=== PATIENT | female | born 1935 | race Caucasian/White ===

== ENCOUNTER → 2016-10-20 | Day surgery (SDC) | payer MEDICARE ==
[~2016-10-20] MED LIST: ALPHAGAN P10 ML OP; AMLODIPINE BESIL1 GM PO; AMLODIPINE BESYL5 MG PO; CARAFATE1 G PO; CARAFATE1 GM PO; CEFTIN PO; CITALOPRAM HBR40 MG PO; DIAZEPAM2 MG PO; FERRO-TIME325 MG PO; GLUCOTROL PO; GLUCOTROL XL10 MG PO; LEXAPRO PO; LORTAB 10/500 T1 TAB PO; LUMIGAN2.5 ML OU; MELOXICAM15 MG PO; METHOCARBAMOL500 MG PO; NEURONTIN PO; OXYCODONE15 M1 PO; PAROXETINE HCL20 MG PO; PROTONIX PO; PROZAC PO; TOPAMAX50 MG PO; TOPROL XL PO; TRAVATAN5 ML OS
--- NOTE | ~2016-10-20 | OR ---
Unit #: [id number] #: [id number] Patient: EDUARDO ZAMARRIPA [id number] [facility]. [place], [place] [address] [id number] O MR#: [id number] NAME: EDUARDO ZAMARRIPA ROOM: Date of Procedure: 10/20/2016 Admission Date: 10/20/2016 Surgeon: Ant Jaimes M.D. : 1935 Attending Physician: Ant Jaimes M.D. Primary Care Physician: Suzi Santoro A.P.R.N. OPERATIVE REPORT JOB NOTE: CC: SUZI SANTORO A.P.R.N. ATTENDING PHYSICIAN Suzi Santoro A.P.R.N. PREOPERATIVE DIAGNOSES The patient has longstanding history of gastroesophageal reflux and had a pyloric channel ulcer. She came for elective upper endoscopy to document healing of the ulcer. PROCEDURES PERFORMED Upper gastrointestinal endoscopy and biopsy. POSTOPERATIVE DIAGNOSES 1. Previously seen gastric ulcer is completely healed. 2. The patient had [id number] prepyloric antral erosive gastritis. Biopsies were obtained from the antrum for CLOtest. 3. 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 The latter was felt to be nonobstructing, but was dilated using repeated punch biopsy in the same area of the ring. 4. Rest of the examination up to third part of duodenum was normal. RECOMMENDATIONS The patient is advised to reduce the dose of Protonix from 40 mg p.o. b.i.d. to 40 mg p.o. q.a.m. She will be followed up in the office in 4 to 5 months' time. SEDATION USED MAC. DESCRIPTION OF PROCEDURE Following detailed explanation of the potential risks and complications of an upper endoscopy, namely perforation, bleeding, and complication related to sedation, the patient was brought to GI lab and laid in the left lateral decubitus position. Lubricated tip of the Olympus video upper endoscope was passed through the bite block into the proximal esophagus under direct vision. The entire esophageal mucosa was examined and the patient was noted to have distal esophageal mucosal ring. This was felt to be nonobstructing. The scope was then advanced into the gastric cavity and the latter was insufflated. Mucosa of the fundus, body, and antrum was examined. Previously seen gastric ulcer is completely resolved and healed. The patient did have prepyloric antral erosive gastritis in the Unit #: [id number] #: [id number] Patient: ZAMARRIPA,GENEVA form of linear erythema, erythematous streaks, and erosions. Pylorus was intubated with visualization of the normal duodenal bulb and second and third part of the duodenum. Upon withdrawal and retroflexion, incisura, cardia, and greater curve was examined and biopsy was obtained from the antrum for CLOtest. The scope was then withdrawn in the distal esophagus. Multiple punch biopsy of the same area of the mucosal ring were done to make it ineffective. The entire esophageal mucosa was examined all the way up to pharynx. No additional findings were noted. The patient tolerated the procedure without any postprocedure complications. Dictated by... Cullen Nelson TD: 10/20/2016 10:45 JOB #: [id number] OPERATIVE REPORT X Ant Jaimes MD X PROCEDURE OPERATIVE NOTE
== END | disposition home or self-care (01) ==
LOC: COPS 07:26
DX: K29.60 Other gastritis without bleeding (principal); K22.2 Esophageal obstruction; K21.9 Gastro-esophageal reflux disease without esophagitis; Z87.19 Personal history of other diseases of the digestive system; I10 Essential (primary) hypertension; J43.9 Emphysema, unspecified; M19.90 Unspecified osteoarthritis, unspecified site; M41.9 Scoliosis, unspecified; Z87.891 Personal history of nicotine dependence; Z90.710 Acquired absence of both cervix and uterus
CPT/HCPCS: 87077

== ENCOUNTER → 2017-04-21 | Outpatient (CLI) | payer MEDICARE ==
--- NOTE | ~2017-04-21 | NM8 ---
[facility] A Service of [facility] & [facility] RADIOLOGY TEXT RESULTS PATIENT: EDUARDO ZAMARRIPA LOCATION: [facility] : 33 UNIT #: [id number] AGE: [address]: Suzi Santoro APRN SEX: F ORDER DR: [id number] [place], [place] [address] [id number] O MR#: [id number] Acc #: [id number] NAME: EDUARDO ZAMARRIPA : 1935 SEX: F STUDY DATE/TIME: 04/21/2017 12:27 UNIT: [facility] ROOM: STUDY DESCRIPTION: ID Bone or Joint Whole Body Attending Physician: Suzi Santoro A.P.R.N. Referring Physician: Suzi Santoro A.P.R.N. Ordering Physician: Suzi Santoro A.P.R.N. Primary Care Physician: Suzi Santoro A.P.R.N. MEDICAL IMAGING REPORT This report is preliminary unless electronic signature is present EXAM Whole-body bone scan HISTORY 82-year-old female with elevated alkaline phosphatase found 2 weeks ago. Complains of no specific complaints. COMPARISON No recent correlative images are available. FINDINGS Examination demonstrates increased uptake in the left anterior ninth and tenth ribs. This contiguous pattern is most compatible with previous trauma and healed or healing rib fractures. There is also increased uptake within the mid thoracic spine at about the T9-T10 thoracic level and also possibly at T7. In an elderly female, this would be concerning for thoracic compression fractures. Correlation with conventional radiographs, CT or MRI may be of benefit. There is increased uptake within the left knee centrally probably related to underlying patellofemoral arthrosis. Mild increased uptake seen in the lumbar spine at the L3-L4 levels and most likely degenerative in nature. Bilateral renal activity normal bladder activity noted. There is also mild increased uptake in the medial compartment of the right knee, most likely degenerative in nature. IMPRESSION 1. Multiple foci of increased uptake as detailed above, but no findings to suggest osseous metastatic disease. No findings to suggest fibrous dysplasia. 2. Increased uptake in the mid thoracic spine multiple levels, probably related to possible thoracic compression fractures. Correlate for acuity and if clinically warranted, cross-sectional imaging may be of STS. [facility] A Service of [facility] & [facility] RADIOLOGY TEXT RESULTS PATIENT: EDUARDO ZAMARRIPA LOCATION: [facility] : 34 UNIT #: [id number] AGE: [address]: Suzi Santoro APRN SEX: F ORDER DR: [email or web address]. 3. Degenerative uptake patellofemoral compartment left knee and medial compartment right knee. 4. There is normal bilateral renal activity and normal bladder activity. Dictated by... Brijesh Bean M.D. THIS IS AN ELECTRONICALLY VERIFIED REPORT Brijesh Bean M.D. at 04/23/2017 2:35 PM MANOJ/gray TD: 04/22/2017 08:22 JOB #: [id number] MEDICAL IMAGING REPORT Page 1 of 1 COPY
== END | disposition home or self-care (01) ==
LOC: CNUC 09:00
DX: R74.8 Abnormal levels of other serum enzymes (principal)
CPT/HCPCS: 78306; A9503